=== PATIENT | male | born 1975 | race American Indian/Alaskan Native ===

== ENCOUNTER 2018-01-19 18:15 | Emergency (ER) | payer BC ==
[2018-01-19] MEDS ORDERED: Codeine/Promethazine 10-6.25 MG/5 ML Syrup 5 ML UD Cup PO ONE ×2 (18:16→19:55)
[2018-01-19] MEDS ORDERED: Albuterol 6.7 GM Inhaler INH ONE ×2 (18:16→20:20)
[2018-01-19] MEDS ORDERED: Albuterol/Ipratropium 3.0-0.5 MG/3 ML Neb Soln NEB ONE (19:07)
[2018-01-19] MEDS ORDERED: Oseltamivir 75 MG Cap PO ONE (19:55)
[2018-01-19] MEDS ORDERED: Codeine/Promethazine 10-6.25 MG/5 ML Syrup 5 ML UD Cup ONE (20:20)
--- NOTE | 2018-01-19 20:29 | EDM.PDOC ---
ED HPI GENERAL MEDICAL PROBLEM - General Chief Complaint: Respiratory Problem Stated Complaint: ? PNEUMONIA Time Seen by Provider: 01/19/18 19:00 Source of Information: Reports: Patient, Family History Limitations: Reports: No Limitations - History of Present Illness INITIAL COMMENTS - FREE TEXT/NARRATIVE: C/O cough since yesterday, body aches this am, loose diarrhea stools today. Fever. No vomiting. has not taken anything for diarrhea. Bilateral Flank Pain Score (Numeric/FACES): 7 - Related Data Allergies Allergy/AdvReac Type Severity Reaction Status Date / Time No Known Allergies Allergy Verified 06/25/17 15:04 Past Medical History HEENT History: Reports: Impaired Vision - Past Surgical History GI Surgical History: Reports: Cholecystectomy Musculoskeletal Surgical History: Reports: Arthroscopic Knee Social & Family History - Tobacco Use Smoking Status *Q: Former Smoker Years of Tobacco use: 10 Packs/Tins Daily: 1.5 Used Tobacco, but Quit: Yes Month/Year Tobacco Last Used: 10/2017 - Caffeine Use Caffeine Use: Reports: Coffee, Soda - Recreational Drug Use Recreational Drug Use: No ED ROS GENERAL - Review of Systems Review Of Systems: See Below Constitutional: Reports: Fever, Malaise, Decreased Appetite HEENT: Reports: No Symptoms Respiratory: Reports: Cough Cardiovascular: Reports: No Symptoms GI/Abdominal: Reports: Diarrhea : Reports: No Symptoms Musculoskeletal: Reports: Other (generalized body aches) Skin: Reports: No Symptoms Neurological: Reports: No Symptoms ED EXAM, GENERAL - Physical Exam Exam: See Below Exam Limited By: No Limitations General Appearance: Alert, Mild Distress Eye Exam: Bilateral Eye: EOMI Ears: Normal External Exam Nose: Normal Inspection, Normal Mucosa Throat/Mouth: Normal Inspection, Normal Lips Head: Atraumatic, Normocephalic Neck: Normal Inspection, Full Range of Motion Respiratory/Chest: No Respiratory Distress, Decreased Breath Sounds Cardiovascular: Normal Peripheral Pulses, Regular Rate, Rhythm, Tachycardia GI/Abdominal: Normal Bowel Sounds, Soft, Tender (mild epigastric) Extremities: Normal Inspection, Normal Range of Motion Neurological: Alert, Oriented, Normal Cognition Psychiatric: Normal Affect Skin Exam: Warm, Dry, Intact, Normal Color Course - Vital Signs Last Recorded V/S: Last Vital Signs Temp 97.2 F 01/19/18 18:34 Pulse 103 H 01/19/18 19:12 Resp 16 05/21/18 18:34 BP 106/71 01/19/18 18:34 Pulse Ox 94 L 01/19/18 18:34 - Orders/Labs/Meds Meds: Medications Discontinued Medications Generic Name Dose Route Start Last Admin Trade Name Adele PRN Reason Stop Dose Admin Albuterol Confirm 01/19/18 20:20 01/19/18 21:52 Proventil Hfa Administered 01/19/18 20:21 Not Given Dose 6.7 gm INH .STK-MED ONE Albuterol/Ipratropium 3 ml 01/19/18 19:07 01/19/18 19:11 Duoneb 3.0-0.5 Mg/3 Ml NEB 01/19/18 19:08 3 ml ONETIME ONE Administration Oseltamivir Phosphate 75 mg 01/19/18 19:55 01/19/18 20:15 Tamiflu PO 01/19/18 19:56 75 mg ONETIME ONE Administration Promethazine HCl/Codeine 5 ml 01/19/18 19:55 01/19/18 20:15 Phenergan With Codeine PO 01/19/18 19:56 5 ml ONETIME ONE Administration Promethazine HCl/Codeine Confirm 01/19/18 20:20 01/19/18 21:52 Phenergan With Codeine Administered 01/19/18 20:21 Not Given Dose 10 ml .ROUTE .STK-MED ONE Departure - Departure Time of Disposition: 20:26 Disposition: Home, Self-Care 01 Condition: Good Clinical Impression: Influenza A - Discharge Information Instructions: Influenza, Adult Forms: ED Department Discharge Additional Instructions: increase fluids tylenol or ibuprofen for discomfort, may alternate every 4 hours as needed tamiflu 75mg one twice daily for 5 days tesselon pearles 200mg every 8 hours as needed for cough phenergan with codeine 5 isela every 6 hours as needed for cough 10ml albuterol inhaler 2 puffs every 4 hours as needed avoid exposure to very young, eldery or those with low immune systems at least 10days, longer if continued cough
== END 2018-01-19 20:32 | disposition home or self-care (01) ==
LOC: DL.ED 18:15
DX: J10.1 Influenza due to other identified influenza virus with other respiratory manifestations (principal); Z87.891 Personal history of nicotine dependence
CPT/HCPCS: 71046; 87081; 87430; 87804; 99284; A9270

== ENCOUNTER 2022-07-12 05:53 | Day surgery (SDC) | payer BC, OTHER ==
[~2022-07-12 05:53] MED LIST: Sodium Chloride 0.9% 10 ML Syringe FLUSH SCH
[2022-07-12] MEDS ORDERED: Midazolam 1 MG/ML 2 ML SDV IV ONE ×7 (05:54→07:22)
[2022-07-12] MEDS ORDERED: fentaNYL 100 MCG/2 ML SDV IV ONE ×3 (05:54→07:15)
[2022-07-12] MEDS ORDERED: Dextrose 5%-0.45% NaCl 1,000 ML IV SCH (06:00)
[2022-07-12] MEDS ORDERED: Sodium Chloride 0.9% 10 ML Syringe FLUSH PRN (06:00)
[2022-07-12] MEDS ORDERED: fentaNYL 100 MCG/2 ML SDV ONE (06:17)
[2022-07-12] MEDS ORDERED: Midazolam 1 MG/ML 2 ML SDV ONE (06:17)
== END 2022-07-12 09:00 | disposition home or self-care (01) ==
LOC: DL.ENDO 05:53
PROVIDERS: ATTEND Internal Medicine Gastroenterology
DX: Z12.11 Encounter for screening for malignant neoplasm of colon (principal); K57.30 Diverticulosis of large intestine without perforation or abscess without bleeding; F17.210 Nicotine dependence, cigarettes, uncomplicated; E78.00 Pure hypercholesterolemia, unspecified; R73.9 Hyperglycemia, unspecified; Z90.49 Acquired absence of other specified parts of digestive tract
CPT/HCPCS: 45378; J2250; J3010; J7042